=== PATIENT | male | born 2005 | race Hispanic/Latino ===

== ENCOUNTER 2023-05-04 10:01 | Emergency (ER) | payer SELFPAY ==
[~2023-05-04] VITALS: Ht 170.2 cm; Wt 87.2 kg
[2023-05-04 10:08] VITALS: BP 125/85
[2023-05-04 11:07] LABS: BASO% 0.2 % (0-3); EOS% 6.6 % (0-8); HEMATOCRIT 43.7 % (39.0-50.0); HEMOGLOBIN 14.1 g/dl (14.0-18.0); IMMATURE GRANULOCYTES 0.2 % (0.0-5.0); LYMPH% 27.6 % (15-41); MEAN CELL VOLUME 81.4 fL CALC (80.0-100.0); MEAN CORPUSCULAR HGB 26.3 pG CALC (26.0-32.0); MEAN CORPUSCULAR HGB CONC 32.3 g/dL CAL (32.0-36.0); MONO% 6.8 % (2-13); NEUT# 3.19 thou/uL (1.82-7.42); NEUT% 58.6 % (42-76); RED BLOOD COUNT 5.37 mill/uL (4.70-6.10); RED CELL DISTRI WIDTH 12.4 % (11.5-15.5)
[2023-05-04 11:11] LABS: ALBUMIN 4.4 g/dL (3.2-5.0); ALKALINE PHOSPHATASE 78 u/l (38-126); ANION GAP 14 (6-22 (CALC)); BILIRUBIN, TOTAL 0.9 mg/dL (0.2-1.3); BUN 14 mg/dL (8-21); BUN/CREATININE RATIO 19 (12-20 (CALC)); CARBON DIOXIDE 22 mmol/l (22-30); CHLORIDE 104 mmol/l (95-108); CREATININE 0.7 mg/dL (0.7-1.3); GFR FOR AFR.AMER. > 60 ML/MIN (>=60 (CALC)); GFR OTHER RACES > 60 ML/MIN (>=60 (CALC)); POTASSIUM 4.3 mmol/l (3.5-5.1); SGOT/AST 34 u/l (17-59); SODIUM 136 mmol/l (137-146)
[2023-05-04] MEDS ORDERED: KEFLEX500 MG PO (13:27)
[2023-05-04 13:50] VITALS: BP 125/85
== END 2023-05-04 13:51 | disposition home or self-care (01) | DRG 607 ==
LOC: ED 10:01
PROVIDERS: Family Medicine
DX: S50.861A Insect bite (nonvenomous) of right forearm, initial encounter (principal); L03.113 Cellulitis of right upper limb; L23.7 Allergic contact dermatitis due to plants, except food; W57.XXXA Bitten or stung by nonvenomous insect and other nonvenomous arthropods, initial encounter; Y93.H2 Activity, gardening and landscaping; Y92.74 Orchard as the place of occurrence of the external cause